=== PATIENT | male | born 1975 | race Caucasian/White ===

== ENCOUNTER 2022-07-05 10:18 | Emergency (ER) | payer MEDICAID ==
[~2022-07-05] VITALS: Ht 190.5 cm; Wt 91.0 kg
[2022-07-05] MEDS ORDERED: ONDANSETRON HCL 4MG/2ML INJ IV STA (11:36)
[2022-07-05] MEDS ORDERED: KETOROLAC 30MG/ML VIAL IV STA (11:36)
[2022-07-05] MEDS ORDERED: SODIUM CHLORIDE 0.9% 1,000 ML IV ONE (11:45)
[2022-07-05 11:59] VITALS: BP 137/97
[2022-07-05 12:06] LABS: HEMATOCRIT. 44.3 % (42.0-52.0); HEMOGLOBIN. 15.4 g/dL (14.0-18.0); MEAN CORPUSCULAR HEMOGLOBIN 32.4 pg (28.0-32.0); MEAN CORPUSCULAR VOLUME 92.9 fL (80.0-94.0); MEAN PLATELET VOLUME 8.8 fl (7.4-10.4); PLATELET 186 x1000/uL (130-400); RED BLOOD CELL COUNT 4.77 mill/uL (4.7-6.1); RED CELL DISTRIBUTION WIDTH 13.7 % (11.6-14.6)
[2022-07-05 12:16] LABS: CHLORIDE 111 mEq/L (98-107)
[2022-07-05 12:25] LABS: ETHANOL BLOOD < 10 mg/dL
[2022-07-05 12:30] LABS: PLATELET ESTIMATE NORMAL
[2022-07-05] MEDS ORDERED: IOHEXOL-300 100 ML BOTTLE ONE (14:17)
[2022-07-05] MEDS ORDERED: CEFTRIAXONE 2 G PREMIX 50 ML IV ONE (15:30)
[2022-07-05] MEDS ORDERED: METRONIDAZOLE 500 MG PREMIX 100 ML IV ONE (15:30)
[2022-07-05] MEDS ORDERED: CEFTRIAXONE 2 G in DEXTROSE 5% WATER 50 ML IV NR (16:00)
[2022-07-05] MEDS ORDERED: CEFD300C3 PO (16:17)
[2022-07-05] MEDS ORDERED: METR-167 MT (16:17)
== END 2022-07-05 16:43 | disposition home or self-care (01) ==
LOC: ER 10:18 → CANBEDREQ 16:01 → ER 16:43
DX: K52.9 Noninfective gastroenteritis and colitis, unspecified (principal); R11.2 Nausea with vomiting, unspecified; R10.30 Lower abdominal pain, unspecified
CPT/HCPCS: 36415; 74177; 76870; 80053; 80320; 83605; 83690; 85025; 93976; 96374; 96375; 99285; J1885; J2405; J7030; Q9967; J0696; J7060; G0480